=== PATIENT | female | born 1930 | race Caucasian/White ===

== ENCOUNTER 2017-02-15 15:39 | Emergency (ER) | payer MEDICARE, OTHER ==
[~2017-02-15 15:39] MED LIST: AMLO10TA2 PO; CLOP75TA57 PO; INSU100I13 SQ; LISI40TA PO; SIMV40TA PO
--- NOTE | 2017-02-15 17:00 | RAD ---
One or more of the following individualized dose reduction techniques were utilized for this examination: 1. Automated exposure control 2. Adjustment of the mA and/or kV according to patient size 3. Use of iterative reconstruction technique CT brain without contrast, CT cervical spine without contrast. History: Fall today, pain, head injury, confusion CT scan of brain was done without contrast. Comparison is made with a study from December 2012. 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 There is decreased density in the white matter from microvascular changes bilaterally. There is no intracranial hemorrhage or subdural hematoma. An acute CVA is not identified. Ventricles are normal in size. There is chronic mucosal thickening in the left sphenoid sinus. CT cervical spine Axial CT images were obtained through the cervical spine. Sagittal and coronal reconstructed images were reviewed. There is degenerative change in the cervical spine. There is no acute fracture. Thyroid is homogeneous. There is degenerative disc disease at multiple levels in the cervical spine. Impression: 1. 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 2. Chronic white matter changes. 3. No intracranial hemorrhage or acute finding noted intracranially. 4. 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 5. No acute C-spine fracture.
--- NOTE | 2017-02-15 17:07 | PHYS DOC ---
Past Medical History Past Medical History: Anxiety, CHF, Diabetes-Type II, High Cholesterol, Hypertension, UTI, Other Additional Past Medical Histor: alzheimers disease, pacemaker, cad,dysphagia, pain Past Surgical History: Pacemaker Alcohol Use: None Drug Use: None Adult General Chief Complaint Chief Complaint: MECHANICAL FALL HPI HPI Patient is a 86 year old female brought to the ED by EMS from her shelter after a fall with a head injury. Reportedly, someone was helping the patient out of her wheelchair, and she fell, striking her right forehead, possibly on a wall or doorway. There was no loss of consciousness. She was helped up and got into bed but then shelter staff decided they wanted her to be evaluated. Patient at this time states that nothing is hurting her. She denies nausea or vomiting. She denies headache. Med list includes Plavix but no other blood thinner or antiplatelet agents. Review of Systems Review of Systems Constitutional: Denies fever or chills [] Eyes: Denies change in visual acuity, redness, or eye pain [] HENT: Denies nasal congestion or sore throat [] Respiratory: Denies cough or shortness of breath [] Cardiovascular: Denies chest pain GI: Denies abdominal pain, nausea, vomiting : Denies dysuria or hematuria [] Musculoskeletal: Denies back pain or joint pain [] Integument: Denies laceration or bleeding Neurologic: Denies headache Allergies Allergies Allergies Coded Allergies Type Severity Reaction Last Updated Verified penicillin Allergy Intermediate SEE COMMENT 01/04/15 Yes Physical Exam Physical Exam Constitutional: Well developed, well nourished, no acute distress, non-toxic appearance. Alert, warm and dry, mentating normally. HENT: bilateral external ears normal, oropharynx moist, no oral exudates, nose normal. There is a contusion to the right forehead approximately 3 x 4 cm in diameter, no bleeding. Eyes: conjunctiva normal, no discharge. [] Neck: Normal range of motion, no tenderness, supple, no stridor. [] Cardiovascular:Heart rate regular rhythm, no murmur [] Lungs & Thorax: Bilateral breath sounds clear to auscultation [] Skin: Warm, dry, no erythema, no rash. [] Extremities: No tenderness, no cyanosis, no clubbing, ROM intact, no edema. No tenderness or deformity of any extremity. The hips are nontender to range of motion which is full. Neurologic: Alert and oriented X 3, normal motor function, no focal deficits noted. [] Current Patient Data Vital Signs Vital Signs Date Time Temp Pulse Resp B/P (MAP) Pulse Ox O2 Delivery O2 Flow Rate FiO2 02/15/17 15:39 97.7 74 12 97 Room Air 97.7 EKG EKG [] Radiology/Procedures Radiology/Procedures CT scan of the head and cervical spine read by the radiologist. No acute findings.[] Course & Med Decision Making Course & Med Decision Making Pertinent Labs and Imaging studies reviewed. (See chart for details) 86-year-old female who is on daily Plavix presents after a fall with a contusion to her right forehead. She is neurologically intact. CT scan is negative. See instructions for plan. She is stable for return to her shelter. [] Dragon Disclaimer Dragon Disclaimer This electronic medical record was generated, in whole or in part, using a voice recognition dictation system. Departure Departure Impression: Primary Impression: Forehead contusion Additional Impression: Head injury, acute, without loss of consciousness Disposition: 01 HOME, SELF-CARE Condition: STABLE Referrals: ERON WOLFE MD (PCP) Patient Instructions: Head Injury, Adult, [id number] Additional Instructions: The bleeding on the forehead will probably settled with gravity and likely cause a black eye in a few days. You may use ice 15-20 minutes out of every 1-2 hours for pain and swelling if needed, if it is not well-tolerated it is not necessary. Problem Qualifiers MANUEL TROTTER MD Feb 15, 2017 17:07
[2017-02-15 17:45] VITALS: BP 125/58
== END 2017-02-15 17:45 | disposition home or self-care (01) ==
LOC: ER 15:39
DX: S00.83XA Contusion of other part of head, initial encounter (principal); I11.0 Hypertensive heart disease with heart failure; I50.9 Heart failure, unspecified; E78.00 Pure hypercholesterolemia, unspecified; F02.80 Dementia in other diseases classified elsewhere, unspecified severity, without behavioral disturbance, psychotic disturbance, mood disturbance, and anxiety; G30.9 Alzheimer's disease, unspecified; I25.10 Atherosclerotic heart disease of native coronary artery without angina pectoris; F41.9 Anxiety disorder, unspecified; E11.9 Type 2 diabetes mellitus without complications; Z86.73 Personal history of transient ischemic attack (TIA), and cerebral infarction without residual deficits; Z95.0 Presence of cardiac pacemaker; Z87.440 Personal history of urinary (tract) infections; Z79.02 Long term (current) use of antithrombotics/antiplatelets; Z88.0 Allergy status to penicillin; W18.09XA Striking against other object with subsequent fall, initial encounter; Y93.89 Activity, other specified; Y99.8 Other external cause status; Y92.89 Other specified places as the place of occurrence of the external cause
CPT/HCPCS: 70450; 72125; 99284-25